=== PATIENT | female | born 1935 | race Two or more races ===

== ENCOUNTER 2022-08-06 15:19 | Inpatient (IN) | payer MEDICAID, OTHER ==
[~2022-08-06] VITALS: Ht 154.9 cm; Wt 52.8 kg
[2022-08-06] MEDS ORDERED: NITROGLYCERIN 0.4 MG SL TAB SL PRN (19:00)
[2022-08-06] MEDS ORDERED: ALBUTEROL SULF 2.5 MG/0.5ML(0.5%) NEB SOLN NEB PRN (19:00)
[2022-08-06] MEDS ORDERED: IPRATROPIUM BROM 0.5 MG/2.5ML INH SOL NEB PRN (19:00)
[2022-08-06 20:09] LABS: Albumin 3.8 g/dL (3.4-5.0); BUN/Creatinine Ratio 23.1; Potassium 4.3 mmol/L (3.5-5.1)
[2022-08-06 20:12] LABS: Bilirubin, Total 0.4 mg/dL (0.2-1.0); Total Protein 7.3 g/dL (6.4-8.2)
[2022-08-06] MEDS ORDERED: levoFLOXacin 500MG 100 ML IV ONE (21:30)
[2022-08-06 22:39] VITALS: BP 152/86
[2022-08-07 00:42] VITALS: BP 147/61
[2022-08-07 05:00] VITALS: BP 131/54
[2022-08-07 05:38] LABS: Basophils # (auto) 0 10 ^3/uL (0-0.2); Basophils % (auto) 0.6 % (0.0-2.0); Eosinophils # (auto) 0.2 10 ^3/uL (0-0.8); Eosinophils % (auto) 2.6 % (0.0-7.0); Hematocrit 38.3 % (36.0-46.0); Hemoglobin 12.8 g/dL (12.2-16.2); Lymphocytes # (auto) 1.7 10 ^3/uL (0.4-5.4); Lymphocytes % (auto) 27.5 % (10.0-50.0); Mean Corpuscular Hemoglobin 30.9 pg (28.0-32.0); Mean Corpuscular Hgb Conc. 33.4 g/dL (32.0-36.0); Mean Corpuscular Volume 92.3 fL (80.0-100.0); Monocytes # (auto) 0.6 10 ^3/uL (0-1.3); Monocytes % (auto) 9.3 % (0.0-12.0); Neutrophils # (auto) 3.7 10 ^3/uL (1.6-8.6); Red Blood Cells 4.15 10^6/uL (4.0-5.20); Red Cell Distribution Width 12.9 % (11.8-14.3); White Blood Cell 6.1 10^3/uL (4.4-10.8)
[2022-08-07 05:49] LABS: Calcium 8.5 mg/dL (8.5-10.1); Potassium 3.9 mmol/L (3.5-5.1)
[2022-08-07 05:51] LABS: BUN/Creatinine Ratio 23.5
[2022-08-07 07:03] LABS: Nucleated Red Blood Cells % 9.5 %
[2022-08-07] MEDS: ENOXAPARIN SOD 30 MG/0.3 ML SYRINGE SC SCH (08:25)
[2022-08-07 08:38] VITALS: BP 139/47
[2022-08-07] MEDS: levoFLOXacin 250MG 50 ML IV SCH (12:05)
[2022-08-07] MEDS: metroNIDAZOLE 500MG/100ML 100 ML IV SCH ×2 (12:05→21:48)
[2022-08-07 13:00] VITALS: BP 151/54
[2022-08-07 17:00] VITALS: BP 129/75
[2022-08-07] MEDS ORDERED: levoFLOXacin 250MG 50 ML IV SCH (21:00)
[2022-08-07 22:00] VITALS: BP 128/66
[2022-08-08 05:00] VITALS: BP 120/63
[2022-08-08] MEDS: metroNIDAZOLE 500MG/100ML 100 ML IV SCH ×2 (05:39→12:16)
[2022-08-08 07:10] LABS: Basophils # (auto) 0 10 ^3/uL (0-0.2); Basophils % (auto) 0.6 % (0.0-2.0); Eosinophils # (auto) 0.2 10 ^3/uL (0-0.8); Eosinophils % (auto) 2.8 % (0.0-7.0); Hematocrit 38.7 % (36.0-46.0); Hemoglobin 12.9 g/dL (12.2-16.2); Lymphocytes # (auto) 1.9 10 ^3/uL (0.4-5.4); Lymphocytes % (auto) 29.4 % (10.0-50.0); Mean Corpuscular Hemoglobin 30.9 pg (28.0-32.0); Mean Corpuscular Hgb Conc. 33.2 g/dL (32.0-36.0); Mean Corpuscular Volume 92.9 fL (80.0-100.0); Monocytes # (auto) 0.7 10 ^3/uL (0-1.3); Monocytes % (auto) 10.6 % (0.0-12.0); Neutrophils # (auto) 3.6 10 ^3/uL (1.6-8.6); Neutrophils % (auto) 56.6 % (37.0-80.0); Nucleated Red Blood Cells % 0.1 %; Red Blood Cells 4.16 10^6/uL (4.0-5.20); Red Cell Distribution Width 12.9 % (11.8-14.3); White Blood Cell 6.3 10^3/uL (4.4-10.8)
[2022-08-08 07:28] LABS: Potassium 4.1 mmol/L (3.5-5.1)
[2022-08-08 08:00] VITALS: BP 125/54
[2022-08-08 08:13] LABS: Albumin 3.2 g/dL (3.4-5.0); BUN/Creatinine Ratio 23.5; Bilirubin, Total 0.4 mg/dL (0.2-1.0); Calcium 8.8 mg/dL (8.5-10.1); Total Protein 6.9 g/dL (6.4-8.2)
[2022-08-08] MEDS: levoFLOXacin 250MG 50 ML IV SCH (08:31)
[2022-08-08] MEDS: ENOXAPARIN SOD 30 MG/0.3 ML SYRINGE SC SCH (08:31)
[2022-08-08] MEDS ORDERED: levoFLOXacin 250MG 50 ML IV SCH (10:00)
[2022-08-08 12:00] VITALS: BP 124/65
[2022-08-08] MEDS ORDERED: AZITTAB PO (13:25)
[2022-08-08 13:30] VITALS: BP 124/65
[2022-08-09 14:50] LABS: Hepatitis C Antibody Negative (Negative)
== END 2022-08-08 15:40 | disposition home or self-care (01) | DRG 139 ==
LOC: EDBD 15:26 → ER 15:26 → OVERFLOW 18:51 → EAST 21:34
PROVIDERS: ADMIT Nurse Practitioner Family; ATTEND Nurse Practitioner Family
DX: J15.9 Unspecified bacterial pneumonia (principal); J98.11 Atelectasis; R06.03 Acute respiratory distress; Z88.0 Allergy status to penicillin; Z20.822 Contact with and (suspected) exposure to COVID-19
CPT/HCPCS: 36415; 71045; 80048; 80053; 83880; 84484; 85025; 86803; 87040; 87340; 87426; 87804; 96365; G0378; J1956; J3490

== ENCOUNTER 2023-11-29 11:21 | Inpatient (IN) | payer MEDICAID ==
[2023-11-29] VITALS (7 sets, daily range): BP systolic 133; BP diastolic 54; PULSE 62–77; RESP 18–20; TEMP 98.3; O2SAT 92–99
[~2023-11-29] VITALS: Ht 144.8 cm; Wt 53.3 kg
[~2023-11-29 11:21] MED LIST: AZITTAB PO
[2023-11-29 12:22] LABS: Basophils # (auto) 0 10 ^3/uL (0-0.2); Basophils % (auto) 0.3 % (0.0-2.0); Eosinophils # (auto) 0.3 10 ^3/uL (0-0.8); Hematocrit 41.9 % (36.0-46.0); Lymphocytes # (auto) 2.3 10 ^3/uL (0.4-5.4); Lymphocytes % (auto) 22.6 % (10.0-50.0); Mean Corpuscular Hemoglobin 31.2 pg (28.0-32.0); Mean Corpuscular Hgb Conc. 33.4 g/dL (32.0-36.0); Mean Corpuscular Volume 93.4 fL (80.0-100.0); Monocytes # (auto) 0.6 10 ^3/uL (0-1.3); Monocytes % (auto) 6.2 % (0.0-12.0); Neutrophils % (auto) 67.9 % (37.0-80.0); Red Blood Cells 4.48 10^6/uL (4.0-5.20); Red Cell Distribution Width 13.4 % (11.8-14.3); White Blood Cell 10.3 10^3/uL (4.4-10.8)
[2023-11-29 12:30] LABS: Anion Gap 3 (5-15); Carbon Dioxide 31 mmol/L (20-30); Chloride 106 mmol/L (98-107); Sodium 140 mmol/L (136-145)
[2023-11-29 12:36] LABS: BUN/Creatinine Ratio 12.9 (10.0-20.0); Blood Urea Nitrogen 9 mg/dL (9-23); Glucose 112 mg/dL (74-106)
[2023-11-29 13:32] LABS: Urine Bacteria MOD /hpf (None Seen); Urine Blood Negative /uL (Negative); Urine Clarity HAZY (Clear); Urine Color Yellow (Yellow); Urine Hyaline Cast FEW /lpf (0 - 2); Urine Mucus FEW (None Seen); Urine Protein, UAD TRACE (Negative); Urine Urobilinogen Normal (Negative); Urine WBC 85 /hpf (0 - 5); Urine pH 6.5 (5.0-9.0)
[2023-11-29] MEDS: levoFLOXacin 500MG 100 ML IV ONE (13:45)
[2023-11-29 14:34] LABS: COVID19 ANTIGEN SOFIA FIA NEGATIVE (NEGATIVE); Rapid Influenza A Negative (Negative); Rapid Influenza B Negative (Negative)
[2023-11-29] MEDS ORDERED: ACETAMINOPHEN 325 MG TAB PO PRN (15:15)
[2023-11-29] MEDS ORDERED: ONDANSETRON HCL 4 MG/2 ML VIAL IV PRN (15:15)
[2023-11-29] MEDS ORDERED: DOCUSATE SOD 100 MG CAP PO PRN (15:15)
[2023-11-29] MEDS ORDERED: HYDROcodone-ACET 5/325MG TAB PO PRN (15:15)
[2023-11-29] MEDS ORDERED: NITROGLYCERIN 0.4 MG SL TAB SL PRN (15:15)
[2023-11-29] MEDS ORDERED: MORPHINE SULFATE INJ 2 MG/ml SYRG IV PRN ×2 (15:15)
[2023-11-29] MEDS: IPRATROPIUM BROM 0.5 MG/2.5ML INH SOL NEB SCH (19:04)
[2023-11-29] MEDS: ALBUTEROL SULF 2.5 MG/0.5ML(0.5%) NEB SOLN NEB SCH (19:04)
[2023-11-30] VITALS (10 sets, daily range): BP systolic 122–132; BP diastolic 60–79; PULSE 62–78; RESP 14–19; TEMP 98.1–98.8; O2SAT 92–100
[2023-11-30 06:53] LABS: Basophils # (auto) 0 10 ^3/uL (0-0.2); Basophils % (auto) 0.2 % (0.0-2.0); Eosinophils # (auto) 0.3 10 ^3/uL (0-0.8); Eosinophils % (auto) 3.7 % (0.0-7.0); Hemoglobin 12.9 g/dL (12.2-16.2); Lymphocytes # (auto) 2.2 10 ^3/uL (0.4-5.4); Lymphocytes % (auto) 24.9 % (10.0-50.0); Mean Corpuscular Hemoglobin 31.3 pg (28.0-32.0); Mean Corpuscular Hgb Conc. 33.2 g/dL (32.0-36.0); Mean Corpuscular Volume 94.4 fL (80.0-100.0); Monocytes # (auto) 0.7 10 ^3/uL (0-1.3); Monocytes % (auto) 7.6 % (0.0-12.0); Neutrophils # (auto) 5.5 10 ^3/uL (1.6-8.6); Neutrophils % (auto) 63.6 % (37.0-80.0); Nucleated Red Blood Cells % 0.1 %; Red Blood Cells 4.13 10^6/uL (4.0-5.20); Red Cell Distribution Width 12.9 % (11.8-14.3); White Blood Cell 8.7 10^3/uL (4.4-10.8)
[2023-11-30 07:13] LABS: Alanine Aminotransferase 13 U/L (7-40); Albumin 3.8 g/dL (3.2-4.8); Alkaline Phosphatase 85 U/L (46-116); Anion Gap 3 (5-15); Aspartate Aminotransferase 15 U/L (13-40); BUN/Creatinine Ratio 18.6 (10.0-20.0); Bilirubin, Total 0.7 mg/dL (0.2-1.0); Blood Urea Nitrogen 13 mg/dL (9-23); Calcium 8.8 mg/dL (8.5-10.1); Carbon Dioxide 30 mmol/L (20-30); Chloride 107 mmol/L (98-107); Glucose 98 mg/dL (74-106); Sodium 140 mmol/L (136-145)
[2023-11-30] MEDS: levoFLOXacin 750MG 150 ML IV SCH (09:18)
[2023-11-30] MEDS ORDERED: DOXY-111 PO (10:54)
== END 2023-11-30 13:13 | disposition home or self-care (01) | DRG 137 ==
LOC: ER 11:21 → TELE 15:11 → TELE-CENTR 18:02
PROVIDERS: ADMIT Internal Medicine Pulmonary Disease; ATTEND Internal Medicine Pulmonary Disease
DX: J15.69 Pneumonia due to other Gram-negative bacteria (principal); N30.00 Acute cystitis without hematuria; Z20.822 Contact with and (suspected) exposure to COVID-19; J15.9 Unspecified bacterial pneumonia; Z88.0 Allergy status to penicillin
CPT/HCPCS: 36415; 71045; 80048; 80053; 81001; 84484; 85025; 87086; 87426; 87804; 94640; G0378; J1956